=== PATIENT | female | born 1985 | race Two or more races ===

== ENCOUNTER 2019-08-21 03:57 | Inpatient (IN) ==
[2019-08-21 04:37] VITALS: BMI 34.3
[2019-08-21] MEDS ORDERED: PHENERGAN INJ 25 MG IM PRN ×2 (05:21→10:24)
[2019-08-21] MEDS ORDERED: REGLAN INJ 10 MG VIAL IVP PRN (05:21)
[2019-08-21] MEDS ORDERED: D5LR 1L W PITOCIN 10 UNITS/L 10 UNITS/1,000 ML BAG IV PRN (05:21)
[2019-08-21] MEDS ORDERED: NUBAIN INJ 200 MG VIAL MULTIDOSE IVP PRN (05:21)
[2019-08-21] MEDS ORDERED: NS 100 ML IV 100 ML IV ONE (05:38)
[2019-08-21] MEDS ORDERED: D5 1/2 NS 1L W PITOCIN 20 UNITS/L 20 UNITS/1,000 ML BAG IV ONE ×2 (05:39→11:16)
[2019-08-21] MEDS ORDERED: AMPICILLIN VIAL 2 GRAM ONE (05:39)
[2019-08-21] MEDS ORDERED: AMPICILLIN VIAL 2 GRAM 2 G in NS 100 ML IV + SPIKE MINIBAG* 100 ML IV SCH (06:00)
[2019-08-21] MEDS ORDERED: STADOL INJ ONE (06:00)
[2019-08-21] MEDS ORDERED: D5 1/2 NS 1000 ML 1,000 ML IV SCH (06:00)
[2019-08-21] MEDS ORDERED: STADOL INJ IVP PRN (06:25)
[2019-08-21] MEDS ORDERED: AMPICILLIN VIAL 1 GRAM 1 G in NS 50 ML IV + SPIKE MINIBAG* 50 ML IV SCH (10:00)
[2019-08-21] MEDS ORDERED: XYLOCAINE 1 % (PLAIN) ONE (10:00)
[2019-08-21] MEDS ORDERED: D5 1/2 NS 1000 ML 1,000 ML with PITOCIN 20 UNITS IV SCH ×2 (11:00)
[2019-08-21] MEDS ORDERED: MILK OF MAGNESIA PO PRN (11:38)
[2019-08-21] MEDS ORDERED: ADACEL or BOOSTRIX TDaP VACCINE IM ONE ×2 (11:38→18:10)
[2019-08-21] MEDS ORDERED: DERMOPLAST PAIN RELIEF SPRAY TOP PRN (11:38)
[2019-08-21] MEDS ORDERED: HYPERRHO S/D (or RHOGAM) IM PRN (11:38)
[2019-08-21] MEDS: MOTRIN TAB 800 MG PO PRN (17:25)
[2019-08-22] MEDS: MOTRIN TAB 800 MG PO PRN (01:55)
[2019-08-22 06:04] LABS: HEMATOCRIT 31.8 % (36.0-47.0); HEMOGLOBIN 10.9 g/dL (12.0-16.0)
[2019-08-22] MEDS ORDERED: COLACE CAP 100 MG PO ONE ×2 (07:45→07:47)
[2019-08-22 08:12] VITALS: BP 89/53
[2019-08-22] MEDS ORDERED: PRENATAL PLUS PO SCH (09:00)
== END 2019-08-22 11:54 | disposition home or self-care (01) | DRG 807 ==
LOC: ER 04:00 → LD 05:18 → MED/SURG 11:31
PROVIDERS: ADMIT Obstetrics & Gynecology; ATTEND Obstetrics & Gynecology
DX: O26.893 Other specified pregnancy related conditions, third trimester; O70.1 Second degree perineal laceration during delivery; Z23 Encounter for immunization; Z3A.40 40 weeks gestation of pregnancy; Z37.0 Single live birth
CPT/HCPCS: 36415; 59409; 80307; 83020; 83021; 85014; 85018; 86701; 86703; 86850; 86900; 86901; 87389; 90715; 99284; A4216; A4222; J0290; J0595; J7050; S0197; S5010